=== PATIENT | male | born 1955 | race Caucasian/White ===

== ENCOUNTER → 2023-08-01 09:13 | Outpatient (REF) | payer OTHER, SELFPAY | LOC: HWRCS 09:13 | PROVIDERS: ATTENDING PHYSICIAN Internal Medicine Cardiovascular Disease; FAMILY PHYSICIAN Family Medicine | DX: I42.9 Cardiomyopathy, unspecified (principal); I44.7 Left bundle-branch block, unspecified | CPT/HCPCS: 93306 ==

== ENCOUNTER 2023-08-26 08:12 | Day surgery (SDC) | payer OTHER, SELFPAY ==
[2023-07-31 08:19] VITALS: BMI 26.8
--- NOTE | 2023-07-31 08:25 | HPS.HSE ---
Family Physician
-
Family Physician: Katey Bland
Chief Complaint
-
Dilated, nonischemic cardiomyopathy. Left bundle branch block.
History of Present Illness
The patient is a 68 year old male presenting today for dilated, nonischemic cardiomyopathy and left bundle branch block. His ejection fraction was noted to be moderately depressed upon initial presentation in 2004. Since then, he has
undergone an ICD insertion in 2004 and a biventricular ICD generator change in both 2007 and 2015. Thankfully, with his ICD, his ejection fraction has improved to normal with more recent evaluations. He currently displays no signs or symptoms of
acute heart failure. His most recent device check noted that his battery was reaching elective replacement indication. Because of this, it is advised he proceed with a biventricular ICD generator change. He denies any current complaints today such
as chest pain, shortness of breath, palpitations, nausea, vomiting, diarrhea, lightheadedness, dizziness, cough, sore throat, or fever.
Medical History
Past Medical History
Past Medical History: Reports Other
Additional Past Medical History:
1. Dilated, nonischemic cardiomyopathy, status post ICD implantation, 2004, and biventricular ICD generator change 2007 and 2015.
2. Left bundle branch block.
3. Labile hypertension, on multidrug regimen.
4. Reported atrial fibrillation.
5. Congestive heart failure, preserved ejection fraction.
6. Mildly dilated ascending aorta.
7. Obstructive sleep apnea, compliant with CPAP.
8. Chronic post-nasal drip.
9. Remote GERD.
10. Colon polyps.
11. Multilevel degenerative disc disease.
12. Arthritis.
13. BPH.
14. Anxiety.
15. Depression.
Past Surgical History: Reports Other
Additional Past Surgical History:
1. ICD insertion.
2. Biventricular ICD generator change x2.
3. Right knee excision of bursa.
4. Right knee prepatellar bursa I&D.
5. Epidural steroid injection.
6. Multiple colonoscopies.
Social History
Tobacco: Non-smoker
Alcohol: Occasional
Personal:
Living: Other (He lives in a 2 story home with his . )
Family History
Family History: Not pertinent
Allergies / Home Medications
Allergy/Medication List:
Home medications:
1. Amlodipine 5 mg p.o. daily.
2. Bupropion 150 mg p.o. daily.
3. Doxazosin 4 mg p.o. at bedtime.
4. Flonase 2 sprays intranasal at bedtime.
5. Multivitamin 1 tablet p.o. daily.
6. Ramipril 10 mg p.o. at bedtime.
7. Rosuvastatin 10 mg p.o. at bedtime.
8. Venlafaxine 37.5 mg p.o. at bedtime.
9. Vitamin D3 2 tablets p.o. daily.
Allergies: Adhesive. Latex.
Review of Systems
-
A 12 point ROS was completed and negative except as noted: Yes
Physical Exam
Vital Signs
Blood pressure 133/68. Heart rate 51. Respirations 18. Pulse ox 97% on room air.
Height 5 feet, 8 inches. Weight 79.8 kg. BMI 26.7.
Physical Exam
General: Well Developed, Well Nourished and No Apparent Distress
HEENT: NormoCephalic, Moist mucous membranes, Atraumatic and PERRLA
Respiratory: Clear
Cardiac: Bradycardia and Other (Previous ICD site intact. )
GI: Soft, Non Tender and Non Distended
Musculoskeletal: No Edema and Normal Gait & Station
Skin: Warm and Dry
Neuro: AO x 3 and Nonfocal/grossly intact
Laboratory Results
-
DIAGNOSTIC STUDIES as of 07/31/2023: White blood cell count 5.3. Hemoglobin 13.9. Platelet count 207,000. Sodium 141. Potassium 3.9. BUN 20. Creatinine 0.9. Glucose 100. Calcium 9.1. AST 23. ALT 24. Albumin 4.2.
EKG 07/31/2023: AV dual paced rhythm.
Echocardiogram 07/01/2022: Normal left ventricular systolic function. Left ventricular ejection fraction is 55-60%. No significant valvular disease. Mildly dilated ascending aorta. Compared to the previous echo of 05/22/2021, there is no significant
change.
Impression/Plan
-
IMPRESSION/PLAN:
1. Dilated, nonischemic cardiomyopathy and left bundle branch block: The patient is in need of an biventricular ICD generator change with Dr. Feliz Santa on 08/15/2023. The benefits and risks of the procedure have been explained to the patient.
The patient understands these risks and wishes to proceed.
[2023-07-31 08:52] LABS: % Basophils 0.8 % (0-2); % Eosinophils 3.6 % (0-6); % Immature Granulocytes 0.4 % (0-0.5); % Lymphocytes 30.5 % (20.5-51.1); % Monocytes 5.3 % (1.7-9.3); % Neutrophils 59.4 % (42.2-75.2); Absolute Eosinophils 0.2 10^3/uL (0-0.7); Absolute Lymphocytes 1.6 10^3/uL (1.2-3.4); Absolute Monocytes 0.3 10^3/uL (0.1-0.6); Absolute Neutrophils 3.2 10^3/uL (1.4-6.5); Hematocrit 38.8 % (39.0-52.0); Hemoglobin 13.9 g/dL (13.0-18.0); Mean Corp Hgb Conc. 35.8 g/dL (33.0-37.0); Mean Corpuscular Hgb 31.4 pg (27.0-31.0); Mean Corpuscular Volume 87.6 fL (80.0-94.0); Mean Platelet Volume 10.7 fL (7.4-10.4); Nucleated Red Blood Cells % 0 % (-); Platelet Count 207 10^3/uL (130-400); Red Blood Cell Count 4.43 10^6/uL (4.70-6.10); Red Cell Dist. Width 12.2 % (11.5-14.5); White Blood Cell Count 5.3 10^3/uL (4.8-10.8)
[2023-07-31 09:14] LABS: ALT (SGPT) 24 U/L (0-50); AST (SGOT) 23 U/L (17-59); Albumin 4.2 g/dl (3.5-5.0); Alkaline Phosphatase 46 U/L (38-126); Blood Urea Nitrogen 20 mg/dl (9-20); Calcium 9.1 mg/dl (8.4-10.2); Carbon Dioxide 30 mmol/L (22-30); Chloride 104 mmol/L (98-107); Estimated Creatinine Clearance 77 ml/min; Glucose 100 mg/dl (70-99); Potassium 3.9 mmol/L (3.5-5.1); Sodium 141 mmol/L (135-145); Total Bilirubin 0.8 mg/dl (0.2-1.3); Total Protein 6.2 g/dl (6.3-8.2); eGFR > 60.00
[2023-08-26] VITALS (8 sets, daily range): BP systolic 94–128; BP diastolic 57–75; BMI 26.6
--- NOTE | 2023-08-26 09:25 | W.ICD.CONTRA ---
Post ICD/PRODUCT SUPPORT TECHNICIAN-D
-
History of [place]?: No
LV Function
Left ventricular function study result?: Ejection Fraction >/= 40%
ACEI/ARB/ARNI
Patient already on ACEI/ARB/ARNI: Yes
Beta-Kam
Patient already on Beta Kam: No
Beta Kam Not Indicated: Left Ventricular EF >/= 40%
[2023-08-26] MEDS: TYLENOL 650 MG PO (12:23)
--- NOTE | 2023-08-26 15:45 | ITS.CL.ICD ---
Semiconductor Engineer - ICD
Implantable Cardioverter Defibrillator
Procedure Report:
Date of Procedure: August 26, 2023
Procedures: Biventricular ICD pulse generator change. ICD Pulse Generator Explantation, ICD Pulse Generator Implantation.
Indication: Natural battery depletion. The patient has a wide left bundle branch block and a resolved nonischemic dilated cardiomyopathy. The patient's life expectancy exceeds one year. Heart failure class 1.
Performing Physician: Feliz Santa MD, [facility].
Implant: ICD Pulse Generator: [employer]; Moment[employer] RN CORRECTIONS-D, Model# G1125; Serial# [id number].
Explanted ICD Pulse Generator (Implanted October): [employer]; [employer] RN CORRECTIONS-D, Model# G141; Serial# [id number].
Retained Leads:
RA: [employer]; Model# 4543; Serial# [id number]. (Implanted 08/02/2004)
RV: [employer]; Model# 0185; Serial# [id number]. (Implanted 08/02/2004)
LV: [employer]; Model# 4470; Serial# [id number]. (Implanted 01/28/2008)
Capped LV lead with high threshold (implanted 08/02/2004 and capped on 01/28/2008) LV lead: Model 4087; Serial# [id number]. This lead was not manipulated or identified today.
Technique: A time out was performed. The procedure site was identified. Preoperative cefazolin was administered prior to the skin incision per protocol. The patient was anesthetized by the anesthesia service. The patient was prepped and draped in
the usual fashion. Local anesthetic was applied to the left prepectoral subcutaneous tissue. A 3 inch incision was made over the pulse generator. The capsule was entered with plasma blade cautery of the subcutaneous tissue and blunt dissection the
pectoralis muscle dividing the fibers longitudinally. The old ICD pulse generator was explanted. No plasma blade cautery was applied to the lead system. Standard cautery was not used. The leads were appropriately attached to the new ICD pulse
generator. The pocket was irrigated with antibiotic solution. Hemostasis was excellent. The device and leads were placed in the pocket. The incision was closed in layers with absorbable suture. Steri-strips and an Aquacel dressing were applied.
There was no blood loss. There were no complications. No fluoroscopy was used. Defibrillation threshold testing was not performed.
Lead Analysis:
RA lead: P: 4.3 mV; Threshold: 0.6 V @ 0.5 ms; Impedance: 384 ohms.
RV lead: R: 11 mV; Threshold: 0.9 V @ 0.4 ms; Impedance: 419 ohms. Shock impedance 45 ohms.
LV lead: R: 5.6 mV; Threshold: 3.3V @ 2 ms; Impedance: 590 ohms (note that the LV threshold on Nov 14, 2015 was: 3.2 V @ 1.5 ms).
Final Programming: VT/VF 190 bpm; Derrick: DDDR 50-140 bpm.
Conclusion: Uncomplicated ICD change and testing.
Recommendation: Routine post ICD care.
cc: Katey Bland MD and Nicholas Merchant MD.
== END 2023-08-26 13:28 | disposition home or self-care (01) ==
LOC: CATH 08:12
PROVIDERS: ATTENDING PHYSICIAN Internal Medicine Cardiovascular Disease; FAMILY PHYSICIAN Family Medicine; OTHER PHYSICIAN Internal Medicine Cardiovascular Disease
DX: I50.32 Chronic diastolic (congestive) heart failure (principal); I44.7 Left bundle-branch block, unspecified; I42.8 Other cardiomyopathies; I48.91 Unspecified atrial fibrillation; I11.0 Hypertensive heart disease with heart failure; G47.33 Obstructive sleep apnea (adult) (pediatric); R09.82 Postnasal drip; K21.9 Gastro-esophageal reflux disease without esophagitis; Z87.19 Personal history of other diseases of the digestive system; M19.90 Unspecified osteoarthritis, unspecified site; N40.0 Benign prostatic hyperplasia without lower urinary tract symptoms; F41.9 Anxiety disorder, unspecified; F32.A Depression, unspecified; Z79.899 Other long term (current) drug therapy
CPT/HCPCS: 33264; 36415; 80053; 85025; 93005; C1721

== ENCOUNTER → 2023-10-10 07:51 | Outpatient (REF) | payer OTHER, SELFPAY | LOC: RAD 07:51 | PROVIDERS: ATTENDING PHYSICIAN Family Medicine | DX: R05.9 Cough, unspecified (principal) | CPT/HCPCS: 71046; 71270; Q9967 ==

== ENCOUNTER → 2024-08-19 15:48 | Outpatient (REF) | payer OTHER, SELFPAY | LOC: RCS 15:48 | PROVIDERS: ATTENDING PHYSICIAN Internal Medicine Cardiovascular Disease; FAMILY PHYSICIAN Family Medicine | DX: I42.9 Cardiomyopathy, unspecified (principal); I50.20 Unspecified systolic (congestive) heart failure | CPT/HCPCS: 93306 ==